=== PATIENT | male | born 1950 | race Caucasian/White ===

== ENCOUNTER → 2017-01-30 | Day surgery (SDC) | payer MEDICARE, BC, OTHER ==
[~2017-01-30] VITALS: Ht 182.9 cm; Wt 102.8 kg
[~2017-01-30] MED LIST: ASPIRIN (CHILDR81 MG PO; COLACE100 MG PO; COUMADIN 4MG **4 MG PO; FLOMAX0.4 MG PO; TENORMIN25 MG PO; TYLENOL325 MG PO; ZYLOPRIM100 MG PO; ZYRTEC-D TABLE1 EACH PO; ZYRTEC10 M3 PO
[2017-01-30 08:52] LABS: INR - (THERAPEUTIC) 3.15 (0.92-1.07); PROTIME 33.5 SECONDS (9.8-11.4)
== END ==
LOC: GOPD 01-28 → GSDC 07:49
PROVIDERS: Internal Medicine Interventional Cardiology
DX: I48.91 Unspecified atrial fibrillation (principal); Z53.8 Procedure and treatment not carried out for other reasons; E78.5 Hyperlipidemia, unspecified; I10 Essential (primary) hypertension; M10.9 Gout, unspecified; G47.33 Obstructive sleep apnea (adult) (pediatric); F17.220 Nicotine dependence, chewing tobacco, uncomplicated; Z98.890 Other specified postprocedural states; Z86.718 Personal history of other venous thrombosis and embolism; Z79.899 Other long term (current) drug therapy
CPT/HCPCS: J7030

== ENCOUNTER → 2017-02-02 | Outpatient (CLI) | payer MEDICARE, BC, OTHER | END | disposition disaster alternative care site (69) | LOC: GRAD 08:43 | DX: K22.2 Esophageal obstruction (principal) ==